=== PATIENT | female | born 1980 | race Caucasian/White ===

== ENCOUNTER 2018-10-09 11:34 | Emergency (ER) | payer OTHER ==
[2018-10-09 11:45] VITALS: BMI 29.2
--- NOTE | 2018-10-09 12:26 | PDOC ---
History of Present Illness - General History Source: Patient Exam Limitations: No Limitations - History of Present Illness Initial Comments: 10/09/18 15:33 Ms. Olmos is a 38-year-old female with a past medical history significant for HTN (on labetalol bid 100 mg) presents to the emergency department with vaginal bleeding. The patient reports this morning she woke up with bleeding. The patient states she had soaked 3 pads in an hour period, with intermittent passing of clots. The patient reports she had an IUD placed on September 10 at [facility]. Denies fever, chills, cough, chest pain, SOB, abdominal pain , urinary symptoms, changes in bowel habits, dizziness, lightheadedness, nausea , vomiting. LMP: Sep 29, irregular at baseline. Allergies: NKDA Social history: none reported PCP: Dr. Lisa Blake. <Sydney Delgadillo - Last Filed: 10/09/18 15:33> - General History Source: Patient Exam Limitations: No Limitations <Flakita Calderon - Last Filed: 10/11/18 07:16> - General Chief Complaint: Vaginal Bleeding Stated Complaint: sudden vag bleedx1.5 hrs Time Seen by Provider: 10/09/18 12:17 Past History <Sydney Delgadillo - Last Filed: 10/09/18 15:33> - Past Medical History Asthma: No Cancer: No Cardiac Disorders: No COPD: No Diabetes: No HTN: Yes Seizures: No Thyroid Disease: No - Reproductive History Is Patient Now?: No - Immunization History Immunization Up to Date: Yes - Suicide/Smoking/Psychosocial Hx Smoking History: Never smoked Have you smoked in the past 12 months: No Hx Alcohol Use: No Drug/Substance Use Hx: No Substance Use Type: None Hx Substance Use Treatment: No <Flakita Calderon - Last Filed: 10/11/18 07:16> - Past Medical History Allergies/Adverse Reactions: Allergies Allergy/AdvReac Type Severity Reaction Status Date / Time No Known Allergies Allergy Verified 10/09/18 11:42 Review of Systems - Review of Systems Able to Perform ROS?: Yes Comments:: 10/09/18 15:33 Constitutional: no fevers or chills. HEENT: no headache or dizziness. No congestion. No visual/hearing disturbances. CVS: no cp or syncope. Resp: no sob. No cough. Abdomen: no abdominal pain, nausea or vomiting. Genitourinary: +Vaginal bleeding. no urinary sx, hematuria. MUSCULOSKELETAL: No joint pain and swelling. No neck or back pain. SKIN: no redness or skin changes, no discharge, no rash. No wounds. Hematologic: no easy bruising/bleeding. NEUROLOGIC: No headache, dizziness, LOC or altered mental status. No weakness, numbness or tingling. All other systems reviewed and negative, or as documented in HPI. <Sydney Delgadillo - Last Filed: 10/09/18 15:33> *Physical Exam - Vital Signs Last Vital Signs Temp Pulse Resp BP Pulse Ox 99.0 F 89 16 136/79 99 10/09/18 15:25 10/09/18 15:25 10/09/18 15:25 10/09/18 15:25 10/09/18 15:25 - Physical Exam Comments: 10/09/18 15:34 General: Well appearing, awake and alert, NAD. HEENT: NCAT, PERRL, EOMI, clear conjunctiva, anicteric, moist mucus membranes, clear oropharynx, no oral lesions.. Neck: neck supple, FROM Resp: CTAB, normal and even respirations, no respiratory distress CVS: RRR, no murmurs, 2+ peripheral pulses throughout, no peripheral edema Abdomen: soft, NTND, no peritoneal signs. Female : normal external genitalia, no lesions, no CMT, no adnexal tenderness. Smooth and pink cervix, closed. +Cervical os bleeding with clots, passing of blood clots, and IUD string palpated. Back: nontender, normal inspection and ROM MSK: no edema, GONZÁLES x4, ROM intact. No clubbing or cyanosis. normal bulk and tone. Extremities: no calf tenderness Neuro: alert, oriented appropriately; no focal neurologic deficits Skin: warm and well perfused, cap refill <2 sec, normal color <Sydney Delgadillo - Last Filed: 10/09/18 15:33> - Vital Signs Last Vital Signs Temp Pulse Resp BP Pulse Ox 98.8 F 88 18 129/79 99 10/09/18 11:42 10/09/18 11:42 10/09/18 11:42 10/09/18 11:42 10/09/18 11:42 <Flakita Calderon - Last Filed: 10/11/18 07:16> Moderate Sedation - Procedure Monitoring Vital Signs: Procedure Monitoring Vital Signs Temperature 99.0 F 10/09/18 15:25 Pulse Rate 89 10/09/18 15:25 Respiratory Rate 16 10/09/18 15:25 Blood Pressure 136/79 10/09/18 15:25 O2 Sat by Pulse Oximetry (%) 99 10/09/18 15:25 <Sydney Delgadillo - Last Filed: 10/09/18 15:33> - Procedure Monitoring Vital Signs: Procedure Monitoring Vital Signs Temperature 98.8 F 10/09/18 11:42 Pulse Rate 88 10/09/18 11:42 Respiratory Rate 18 10/09/18 11:42 Blood Pressure 129/79 10/09/18 11:42 O2 Sat by Pulse Oximetry (%) 99 10/09/18 11:42 <CalderonFlakitamynor Robert - Last Filed: 10/11/18 07:16> ED Treatment Course - LABORATORY CBC & Chemistry Diagram: 10/09/18 12:38 10/09/18 12:38 - ADDITIONAL ORDERS Additional order review: Laboratory Results 10/09/18 10/09/18 10/09/18 12:38 12:38 12:38 Sodium 139 Potassium 4.2 Chloride 108 H Carbon Dioxide 22 Anion Gap 9 BUN 12 Creatinine 0.7 Creat Clearance w eGFR > 60 Random Glucose 120 H Calcium 8.7 Total Bilirubin 0.3 AST 15 ALT 30 Alkaline Phosphatase 115 Total Protein 7.5 Albumin 3.8 Urine Color Yellow Urine Appearance Clear Urine pH 5.0 Ur Specific [place] 1.025 Urine Protein Negative Urine Glucose (UA) Negative Urine Ketones Negative Urine Blood 3+ H Urine Nitrite Negative Urine Bilirubin Negative Urine Urobilinogen Negative Ur Leukocyte Esterase Negative Urine WBC (Auto) None Urine RBC (Auto) 171 Ur Epithelial Cells Rare Urine Mucus Rare Urine HCG, Qual Negative Blood Type O POSITIVE Antibody Screen Negative 10/09/18 12:38 RBC 3.46 L MCV 83.0 MCHC 34.6 RDW 15.3 D MPV 9.0 Neutrophils % 84.8 H Lymphocytes % 9.9 D Monocytes % 3.6 L Eosinophils % 1.4 Basophils % 0.3 <Sydney Delgadillo - Last Filed: 10/09/18 15:33> - LABORATORY CBC & Chemistry Diagram: 10/09/18 12:38 10/09/18 12:38 <Flakita Calderon - Last Filed: 10/11/18 07:16> Medical Decision Making - Medical Decision Making 10/09/18 14:00 See HPI for details Vital signs reviewed, wnl. Prior notes reviewed, including admissions, discharges and consultations. laboratory results and imaging reviewed, basic labs and lytes with chronic anemia, wbc ct noted 14K, but likely reactive in setting of VB today UA_blood, but no signs of infection, neg for WBCs/leuk esterase. ED course: labs with baseline anemia, no acute changes Hb ~10 TVUS_[address], no structural abnormalities. OB referrals for DUB or early menopausal irregular bleedings. Dispo: Pt to be discharged in stable condition. Patient and family made aware of impression and plan, return precautions discussed (including but not limited to worsening pain or symptoms), fevers, or signs of infection, chest pain, respiratory distress, inability to tolerate oral intake, dehydration, syncope, or neurologic changes). Follow up with PMD and/or specialist as recommended, follow up information provided, take medications as instructed for duration of time. continue with supportive care, avoid triggers and precipitants. All questions answered to patient's satisfaction and expressed understanding and comfort with this. 10/09/18 14:01 10/11/18 07:15 <Flakita Calderon - Last Filed: 10/11/18 07:16> *DC/Admit/Observation/Transfer - Attestations Scribe Attestion: 10/09/18 15:34 Documentation prepared by Sydney Delgadillo, acting as medical education manager for Flakita Calderon MD. <Sydney Delgadillo - Last Filed: 10/09/18 15:33> - Discharge Dispostion Decision to Admit order: No - Attestations Physician Attestion: 10/09/18 14:00 I, Flakita Calderon MD, attest that this document has been prepared under my direction and personally reviewed by me in its entirety. I further attest, that it accurately reflects all work, treatment, procedures and medical decision -making performed by me. <Flakita Calderon - Last Filed: 10/11/18 07:16> Diagnosis at time of Disposition: Vaginal bleeding - Discharge Dispostion Disposition: HOME Condition at time of disposition: Improved - Referrals Referrals: Caleb Blake [Primary Care Provider] - Ml Yuen MD [Staff Physician] - Vivian Darnell MD [Staff Physician] - - Patient Instructions Printed Discharge Instructions: DI for Vaginal Bleeding Additional Instructions: your blood work with chronic anemia, no new changes your ultrasound was normal with IUD in place follow up with sole buffer for possible perimenopausal symptoms. return if worsening bleeding, dizziness, fainting or abdominal pain, dehydration Gilliam anlisis de susana con anemia crnica, no hay nuevos cambios. Gilliam ecografa fue normal con el DIU colocado. Joana un seguimiento con el gineclogo para detectar posibles sntomas perimenopusicos. volver si empeora el sangrado, mareos, desmayos o dolor abdominal, deshidratacin Print Language: [place] - Post Discharge Activity Forms/Work/School Notes: Back to Work
[2018-10-09 12:51] LABS: HCG,QUALITATIVE URINE Negative
[2018-10-09 13:08] LABS: URINE APPEARANCE CLEAR; URINE BILIRUBIN NEGATIVE (<2.0 mg/dL); URINE COLOR YELLOW; URINE GLUCOSE (UA) NEGATIVE (NEGATIVE); URINE KETONE NEGATIVE (NEGATIVE); URINE LEUK ESTERASE NEGATIVE (NEGATIVE); URINE NITRITE NEGATIVE (NEGATIVE); URINE PROTEIN NEGATIVE (NEGATIVE); URINE UROBILINOGEN NEGATIVE mg/dL (0.2-1.0)
[2018-10-09 13:12] LABS: BASO % 0.3 % (0-2.0); EOS % 1.4 % (0-4.5); HEMATOCRIT 28.7 % (32.4-45.2); HEMOGLOBIN 9.9 GM/dL (10.7-15.3); LYMPH % 9.9 % (8-40); MCH 28.7 pg (25.7-33.7); MCHC 34.6 g/dl (32.0-36.0); MONO % 3.6 % (3.8-10.2); NEUT % 84.8 % (42.8-82.8); PLATELET COUNT 417 K/MM3 (134-434); RBC 3.46 M/mm3 (3.60-5.2); RDW 15.3 % (11.6-15.6)
[2018-10-09 13:13] LABS: EPI CELLS RARE /HPF (FEW); URINE MUCUS RARE
[2018-10-09 13:26] LABS: ALBUMIN 3.8 g/dl (3.4-5.0); ALK PHOS 115 U/L (45-117); ANION GAP 9 MMOL/L (8-16); BILIRUBIN,TOTAL 0.3 mg/dL (0.2-1); BLOOD UREA NITROGEN 12 mg/dL (7-18); CALCIUM 8.7 mg/dL (8.5-10.1); CHLORIDE 108 mmol/L (98-107); CO2 22 mmol/L (21-32); CREATININE 0.7 mg/dL (0.55-1.3); GLUCOSE,RANDOM 120 mg/dL (74-106); POTASSIUM 4.2 mmol/L (3.5-5.1); SGOT/AST 15 U/L (15-37); SGPT/ALT 30 U/L (13-61); SODIUM 139 mmol/L (136-145); TOT PROT 7.5 g/dl (6.4-8.2)
[2018-10-09 15:26] VITALS: BP 136/79; PULSE 89; TEMP 99
== END 2018-10-09 15:30 | disposition home or self-care (01) ==
LOC: JER 11:34
DX: N93.8 Other specified abnormal uterine and vaginal bleeding (principal); I10 Essential (primary) hypertension; D64.9 Anemia, unspecified; Z97.5 Presence of (intrauterine) contraceptive device
CPT/HCPCS: 36415; 76830-TC; 80053; 81003; 81015; 84703; 85025; 86850; 86900; 86901; 87086; 99281-25